=== PATIENT | male | born 1980 | race Caucasian/White ===

== ENCOUNTER 2023-03-14 11:10 | Inpatient (IN) ==
[2023-03-14] MEDS ORDERED: ASPIRIN CHEW 324 MG PO STA (11:25)
--- NOTE | 2023-03-14 11:27 | Emergency Department Note ---
Impression & Plan Chest pain, Hypertension ED Provider Note NAME: CLARKE DELONG AGE: 43 SEX: M : 1980 ARRIVES VIA: Walk-In INFORMANT: Patient, ED PROVIDER(S): Christophe Blas DO CHIEF COMPLAINT: Chest pain HPI: The patient is a 43-year-old male who presented to the emergency department for an evaluation of chest pain. I did receive a call about this patient prior to him coming to the emergency department. The patient has had ongoing chest pain symptoms over the course of the last few weeks. He was felt to be a candidate for stress testing. He presented for his outpatient stress test today but unfortunately his blood pressure was not well controlled and the patient was felt to be a better candidate for catheterization especially given his family history. He has a strong family history of early coronary artery disease. The patient states he has no leg swelling. He denies having any difficulty breathing. He does complain of some of the similar chest pain that has been having over the last few weeks. The patient denies having any recent trauma. The patient did take his morning medications. ROS: See above HPI for pertinent positives & negatives. A total of 10 systems reviewed and were otherwise negative. PAST MEDICAL HISTORY: See Below PAST SURGICAL HISTORY: See Below FAMILY HISTORY: See Below SOCIAL HISTORY: See Below HOME MEDICATIONS: See Below ALLERGIES: See Below VITALS: See Below PHYSICAL EXAMINATION: GENERAL: Patient is awake alert in no acute distress patient is resting comfortably and showing no signs of anxiety EYES: The conjunctivae are clear. The pupils are round and reactive. EARS, NOSE, MOUTH AND THROAT: The nose is without any evidence of any deformity. NECK: The neck is nontender and supple. RESPIRATORY: Normal respiratory effort is noted there is no evidence of wheezing rhonchi or rales CARDIOVASCULAR: Regular rate and rhythm noted there no murmurs rubs or gallops normal S1 normal S2. GASTROINTESTINAL: The abdomen is soft. Abdomen is nontender. MUSCULOSKELETAL/EXTREMITIES: There is no evidence of gross deformity full range of motion is noted in the hips and shoulders. SKIN: There is no obvious evidence of any rash. There are no petechiae, pallor or cyanosis noted. NEUROLOGIC: Patient is awake alert and oriented x3 MEDICAL DECISION MAKING: The patient is a 43-year-old male who presented to the emergency department for an evaluation of chest pain. The patient's had problems with chest pain over the course of the last few weeks. He had an outpatient work-up and then was scheduled for a stress test. The patient was having a stress test today. When he presented for the stress test the patient was noted to have very elevated blood pressure. It was out of the parameters that would allow him to have a stress test. The patient does have a strong family history for early coronary artery disease. For this reason he was felt to be a better candidate for inpatient management as well as possible cardiac catheterization. The patient's EKG shows no acute ischemic changes from previous and cardiac biomarker was negative. I discussed the patient's condition with the on-call [facility] wheel aligner as well as the on-call [facility] hospitalist. Triage Nursing notes reviewed. Prior medical records reviewed Vital Signs: reviewed and remarkable for elevated blood pressure. Differential diagnosis: Cardiac ischemia, aortic dissection, pulmonary embolism, pneumothorax, pneumonia, pericarditis, myocarditis, esophageal rupture, GERD, cholecystitis, pancreatitis, musculoskeletal, as well as other pathologies. ER treatment provided: See below Diagnostics interpreted by me: ECG: EKG was obtained in the emergency department. My interpretation is normal sinus rhythm at 84 bpm. There is no ectopy. There is no acute ST segment abnormalities noted. This was compared to a tracing from January 18, 2016. No significant changes were noted. Cardiac Monitoring: An order was placed for continuous cardiac monitoring. The monitor shows a rate of 82 bpm with sinus rhythm. Laboratory studies: As stated above and show below. Imaging studies: See below. Radiographic imaging was reviewed by myself Consultation(s): I discussed this case with Dr. Cage who is on-call for [facility] cardiology. I discussed this case with Angeles who is on-call for the [facility] hospitalist group. Past Med/Surg History Medical History GERD (gastroesophageal reflux disease) Hypertension Social History Smoking Status: Current every day smoker Preferred Language: Slovak Feels Safe at Home: Yes Allergies Allergies Allergy/AdvReac Type Severity Reaction Status Date / Time No Known Allergies Allergy Unverified 03/14/23 13:06 Home Meds Home Medications Medication Instructions Recorded Confirmed lisinopril 5 mg tablet 5 mg PO DAILY 08/04/22 03/14/23 pantoprazole 40 mg tablet,delayed 40 mg PO DAILY 03/14/23 03/14/23 release Results & Data (ED) Vital Signs Vital Signs - 24 hr 03/14/23 11:13 03/14/23 11:45 03/14/23 11:46 Temperature 36.5 C Temperature Source Temporal Artery Scan Pulse Rate 81 80 Pulse Rate [Left Apical] 78 Pulse Rhythm [Left Apical] Regular Pulse Strength [Left Apical] Normal Respiratory Rate 18 16 Respiratory Effort / Characteristics Non-Labored Spontaneous Non-Labored Spontaneous Respiratory Depth Normal Normal Blood Pressure 161/115 H Blood Pressure [Right Arm] 174/122 H Blood Pressure Mean 130 Blood Pressure Mean [Right Arm] 139 Pulse Oximetry 98 95 Oxygen Delivery Method Room Air Room Air Sepsis Recent Fever Within 48 Hours No Sepsis New/Unexplained Change in Mental Status N/A Sepsis Action Taken by Nursing No Action Required 03/14/23 12:48 03/14/23 13:05 Temperature Temperature Source Pulse Rate Pulse Rate [Left Apical] 78 82 Pulse Rhythm [Left Apical] Regular Regular Pulse Strength [Left Apical] Normal Normal Respiratory Rate 16 16 Respiratory Effort / Characteristics Non-Labored Spontaneous Non-Labored Spontaneous Respiratory Depth Normal Normal Blood Pressure Blood Pressure [Right Arm] 145/107 H 156/110 H Blood Pressure Mean Blood Pressure Mean [Right Arm] 119 125 Pulse Oximetry 95 98 Oxygen Delivery Method Room Air Room Air Sepsis Recent Fever Within 48 Hours Sepsis New/Unexplained Change in Mental Status Sepsis Action Taken by [facility]sp Medications Current Medication List: was personally reviewed by me Laboratory Data Attestation: I reviewed the patient's lab results. 03/14/23 11:30 03/14/23 11:30 Lab Results 03/14/23 03/14/23 03/14/23 Range/Units 11:30 11:30 11:30 WBC 8.72 (4.8-10.8) K/ul RBC 5.58 (4.70-6.10) M/uL Hgb 16.4 (14.0-18.0) g/dl Hct 48.2 (42.0-52.0) % MCV 86.4 (80.0-100.0) fL MCH 29.4 (25.0-34.0) pg MCHC 34.0 (32.0-36.0) g/dL RDW Std Deviation 38.2 (36.4-46.3) fL RDW Coeff of Derek 12.0 (11.5-14.5) % Plt Count 248 (130-400) K/uL MPV 10.4 (9.4-12.4) fL Immature Gran % (Auto) 0.2 % Neut % (Auto) 56.5 % Lymph % (Auto) 31.7 % Pendleton % (Auto) 6.8 % Eos % (Auto) 4.0 % Baso % (Auto) 0.8 % Neut # (Auto) 4.93 (1.40-6.50) K/uL Lymph # (Auto) 2.76 (1.2-3.4) K/uL Pendleton # (Auto) 0.59 (0.11-0.59) K/uL Eos # (Auto) 0.35 (0-0.50) K/uL Baso # (Auto) 0.07 (0-0.2) K/uL Immature Gran # (Auto) 0.02 (0.01-0.20) K/uL PT 10.5 (9.0-12.0) Seconds INR 1.0 (0.9-1.1) APTT 26.6 (21.0-31.0) Seconds PTT Ratio 0.9 Sodium 140 (136-145) mmol/L Potassium 3.6 (3.5-5.1) mmol/L Chloride 105 (98-107) mmol/L Carbon Dioxide 26 (21-32) mmol/L Anion Gap 9 (3-11) BUN 13 (6-23) mg/dl Creatinine 1.20 (0.6-1.4) mg/dl Est Cr Clr Drug Dosing 101.9 ml/min Est GFR ( Amer) 84.1 ml/min Est GFR (Non-Af Amer) 72.6 ml/min BUN/Creatinine Ratio 10.8 (10-20) Glucose 104 H (70-99(Fasting)) mg/dl Calcium 9.3 (8.6-10.3) mg/dl Total Bilirubin 1.8 H (0.2-1.0) mg/dl AST 30 (13-39) U/L ALT 62 H (7-52) U/L Alkaline Phosphatase 73 (34-104) U/L Troponin I High Sens 4.3 (0-20) pg/ml Total Protein 7.2 (6.0-8.3) gm/dl Albumin 4.8 (3.4-5.0) gm/dl Globulin 2.4 L (2.5-4.0) gm/dl Albumin/Globulin Ratio 2.0 (0.9-2) Administered Medications Nitroglycerin (Nitroglycerin 2% Ointment 30gm Tube) 1 inch EXT Q6H JULIANE Stop: 04/13/23 12:29 Last Admin: 03/14/23 13:06 Dose: 1 inch Documented By: VIANNEY Discontinued Medications Aspirin (Aspirin Chew 324 Mg) 324 mg PO NOW STA Stop: 03/14/23 11:26 Last Admin: 03/14/23 11:43 Dose: 243 mg Documented By: VIANNEY Imaging Data Attestation: I personally reviewed and interpreted this imaging study as follows: My Impression: 1 view chest x-ray was obtained in the emergency department. My interpretation is no free air or definite infiltrate, final report below. Radiologist's Impression: Chest X-Ray 03/14/23 11:18 XR chest 1V not portable HISTORY: Chest pain, nonspecific COMPARISON: Chest 01/18/2016. FINDINGS: The lungs are clear. Cardiac silhouette is normal in size. No pleural effusions. No pneumothorax. IMPRESSION: No acute process. ACT 112: Negative or not required by law. Electronically signed by: Raghav Sanchez M.D. 03/14/2023 11:46 AM Discharge Plan Visit Data Chief Complaint: Cardiac Assessment Stated Complaint: heart cath, ref by doc ED Provider: Christophe Blas Discharge Problem: Chest pain, Hypertension Patient Disposition: Being Evaluated by Hospitalist Forms Stand Alone Forms: My [facility] Prescriptions Prescriptions: No Action lisinopril 5 mg tablet 5 mg PO DAILY pantoprazole 40 mg tablet,delayed release (DR/EC) 40 mg PO DAILY Referrals Referrals: Raman Baig MD [Primary Care Provider] -
--- NOTE | 2023-03-14 11:48 | XRay Report ---
XR chest 1V not portable HISTORY: Chest pain, nonspecific COMPARISON: Chest 01/18/2016. FINDINGS: The lungs are clear. Cardiac silhouette is normal in size. No pleural effusions. No pneumot horax. IMPRESSION: No acute process. ACT 112: Negative or not required by law. Electronically signed by: Raghav Sanchez M.D. 03/14/2023 11:46 AM
[2023-03-14 12:04] LABS: Basophils # (auto) 0.07 K/uL (0-0.2); Basophils % (auto) 0.8 %; Eosinophils # (auto) 0.35 K/uL (0-0.50); Hematocrit (blood only) 48.2 % (42.0-52.0); Hemoglobin 16.4 g/dl (14.0-18.0); Immature Granulocytes # (auto) 0.02 K/uL (0.01-0.20); Immature Granulocytes % (auto) 0.2 %; Lymphocytes # (auto) 2.76 K/uL (1.2-3.4); Lymphocytes % (auto) 31.7 %; Mean Corpuscular Hemoglobin 29.4 pg (25.0-34.0); Mean Corpuscular Volume 86.4 fL (80.0-100.0); Mean Platelet Volume 10.4 fL (9.4-12.4); Monocytes # (auto) 0.59 K/uL (0.11-0.59); Monocytes % (auto) 6.8 %; Neutrophils # (auto) 4.93 K/uL (1.40-6.50); Neutrophils % (auto) 56.5 %; Platelet Count 248 K/uL (130-400); RDW Standard Deviation 38.2 fL (36.4-46.3); Red Blood Count 5.58 M/uL (4.70-6.10); White Blood Count 8.72 K/ul (4.8-10.8)
[2023-03-14 12:18] LABS: Albumin Level 4.8 gm/dl (3.4-5.0); BUN Creatinine Ratio 10.8 (10-20); Bilirubin,Total 1.8 mg/dl (0.2-1.0); Calcium 9.3 mg/dl (8.6-10.3); Creatinine Clr Calc Pharmacy 101.9 ml/min; Est GFR (African American) 84.1 ml/min; Est GFR (Non-African American) 72.6 ml/min; Globulin 2.4 gm/dl (2.5-4.0); Potassium 3.6 mmol/L (3.5-5.1); Total Protein 7.2 gm/dl (6.0-8.3)
[2023-03-14 12:24] LABS: Troponin I High Sensitivity 4.3 pg/ml (0-20)
[2023-03-14 12:30] LABS: Partial Thromboplastin Ratio 0.9; Partial Thromboplastin Time 26.6 Seconds (21.0-31.0); Prothrombin Time 10.5 Seconds (9.0-12.0)
[2023-03-14] MEDS: NITROGLYCERIN 2% OINTMENT 30GM TUBE EXT SCH ×2 (13:06→17:28)
--- NOTE | 2023-03-14 13:08 | Cardiology Consultation ---
Date of Consultation March 14, 2023 Assessment & Plan (1) Unstable angina pectoris: (2) Hypertension: (3) Family history of premature CAD: Plan BP remains elevated upon arrival to the emergency department. HS troponin negative x 3. Proceed with Nitropaste. Case to be discussed with the inpatient cardiology team . History of Present Illness History of Present Illness Ortiz Hanson is a 43 year old year old male who is assessed today for chief complaint of acute chest discomfort. The patient is accompanied by his spouse, Skylar. Patient notes that he is had on an off again chest discomfort for a period of several months. At times the discomfort is a vague fluttering and another times he feels a pinching and pressure sensation. 2-3 weeks ago he was driving with his father in [place] and had a significant episode of chest pressure with generalized illness. He thought he was going to have to stop the car and remote area and call 911, but subsequently his symptoms improved. He had been seen by NATASHA Schwartz of our practice 10 days ago on 03/04/2023 for the symptoms and a stress echocardiogram was tentatively planned for today. Upon arrival to the outpatient cardiology testing suite at [facility] today, he was however found to have significant hypertension with blood pressure of 145/107 and 167/117 upon repeat despite having taken his lisinopril 5 milligrams daily dose this morning. He notes that he has been following his blood pressure at home recently and it seems like his blood pressure has been above goal. A resting echocardiogram was performed which has already been reviewed independently by the undersigned with normal resting wall motion and normal LVEF. No pericardial effusion. He would already been connected to the stress test EKG machine, an EKG revealed sinus rhythm in the 70s with no ST segment changes. The stress test portion of the test was canceled in favor of this clinical assessment. At the time my assessment he described waxing waning vague 1-2/10 chest discomfort that he has been having this morning, similar to his previous symptoms. The patient has a strong family history of coronary heart disease. His brother who is also in his 40s and has a history of Hodgkin's lymphoma and prior radiation. He would recently been seen by the undersigned in hospital consultation having presented with a year of waxing waning anginal symptoms and a NSTEMI. 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 The patient notes history of coronary disease, stents in his father and multiple uncles. Past Medical History: Gastroesophageal reflux disease Hypertension Fatty liver Past Surgical History: Laparoscopic cholecystectomy, 01/12/2018 Family History: Brother, with history of Hodgkin's lymphoma, recent non ST segment myocardial infarction, diagnosis of multivessel disease and underwent coronary artery bypass graft surgery January, Patient's father is alive, had coronary stent in his 60s, 2 or 3 years ago The patient has paternal uncles 1 in his 50s and 1 his 60s that each has undergone coronary stents His paternal aunt during heart catheterization procedure at [facility] Social History: 2 children ages 22 and 19 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 Allergies Allergy/AdvReac Type Severity Reaction Status Date / Time No Known Allergies Allergy Unverified 03/14/23 13:06 Home Medications Medication Instructions Recorded Confirmed Type lisinopril 5 mg tablet 5 mg PO DAILY 08/04/22 03/14/23 History pantoprazole 40 mg tablet,delayed 40 mg PO DAILY 03/14/23 03/14/23 History release Patient History Medical History GERD (gastroesophageal reflux disease) Hypertension Surgical History Hx laparoscopic cholecystectomy Hx of tonsillectomy Hx of vasectomy Family History Other Coronary heart disease Social History Smoking Status: Never smoker Hx Alcohol Use: No Hx Substance Use: No Preferred Language: Swedish Feels Safe at Home: Yes Review of Systems Review of Systems: All systems reviewed & are unremarkable except as noted in HPI & below Physical Exam Physical Exam: Temp Pulse Resp BP Pulse Ox O2 Del Method 36.5 C 82 16 156/110 H 98 Room Air 03/14/23 11:13 03/14/23 13:05 03/14/23 13:05 03/14/23 13:05 03/14/23 13:05 03/14/23 13:05 General: no acute distress and stated age Eyes: conjunctiva are pink and non-injected, sclera clear Neck: normal jugular venous pulse, no hepatojugular reflux Chest: normal shape and normal respiratory effort Lungs: clear to auscultation and percussion Cardiac Exam: - regular heart sounds, no murmurs, rubs, or gallops Abdomen: abdomen soft, non-tender, no abnormal masses and no hepatosplenomegaly Musculoskeletal: no gait disturbance, no weakness Extremities: no edema and no cyanosis Neuro: grossly normal exam Psych: appropriate affect and insight. Results & Data Vital Signs (Past 12 Hours) Vital Signs Temp Pulse Pulse Resp BP BP Pulse Ox 03/14/23 12:48 78 16 145/107 H 95 03/14/23 11:46 80 03/14/23 11:45 78 16 174/122 H 95 03/14/23 11:13 36.5 C 81 18 161/115 H 98 O2 Del Method 03/14/23 12:48 Room Air 03/14/23 11:46 03/14/23 11:45 Room Air 03/14/23 11:13 Room Air Laboratory Results Cardiac Enzymes 03/14/23 Range/Units 11:30 AST 30 (13-39) U/L Troponin I High Sens 4.3 (0-20) pg/ml Coagulation 03/14/23 Range/Units 11:30 PT 10.5 (9.0-12.0) Seconds APTT 26.6 (21.0-31.0) Seconds CBC 03/14/23 Range/Units 11:30 WBC 8.72 (4.8-10.8) K/ul RBC 5.58 (4.70-6.10) M/uL Hgb 16.4 (14.0-18.0) g/dl Hct 48.2 (42.0-52.0) % Plt Count 248 (130-400) K/uL Neut # (Auto) 4.93 (1.40-6.50) K/uL Lymph # (Auto) 2.76 (1.2-3.4) K/uL Edwards # (Auto) 0.59 (0.11-0.59) K/uL Eos # (Auto) 0.35 (0-0.50) K/uL Baso # (Auto) 0.07 (0-0.2) K/uL Comprehensive Metabolic Panel 03/14/23 Range/Units 11:30 Sodium 140 (136-145) mmol/L Potassium 3.6 (3.5-5.1) mmol/L Chloride 105 (98-107) mmol/L Carbon Dioxide 26 (21-32) mmol/L BUN 13 (6-23) mg/dl Creatinine 1.20 (0.6-1.4) mg/dl Glucose 104 H (70-99(Fasting)) mg/dl Calcium 9.3 (8.6-10.3) mg/dl AST 30 (13-39) U/L ALT 62 H (7-52) U/L Alkaline Phosphatase 73 (34-104) U/L Total Protein 7.2 (6.0-8.3) gm/dl Albumin 4.8 (3.4-5.0) gm/dl Diagnostic Findings resting EKG performed at stress test lab today 04/14/2023 at 9:24 a.m.: Sinus rhythm 70 beats per minute no significant repolarization abnormalities.
--- NOTE | 2023-03-14 13:24 | History & Physical Report ---
Date of Service March 14, 2023 Assessment & Plan (1) Unstable angina pectoris: (2) Family history of premature CAD: (3) Hypertension: (4) Chest pain: Plan This is a 43-year-old male who has a significant past medical history of HTN, GERD, fatty liver disease and vitamin D deficiency who presents to ED at the referral of cardiology. Unstable Angina Uncontrolled HTN FH of CAD w/ brother undergoing CABG December 2022 Chest pain admit to PCU Consult Cardiology Dr. Cage, did discuss briefly with Dr. Soria reviewed Dr. Soria's OP note in EPIC from today regarding elevated BP and unable to complete stress test He was referred to ED to undergo cardiac catheterization will keep NPO until timing of cath determined continue nitropaste, lisinopril give potassium chloride 40meq x 1 to keep K > 4 will await further cardiology recs Elevated LFT per EPIC pt with fatty liver disease obtain direct bili, monitor lft Obesity bmi 30.7 encourage diet, lifestyle modifications DIET: NPO DVT ppx: SCDS for now until timing of cath determined FULL CODE PCP: Safia DISPO: PCU Pt was seen and examined in collaboration with Dr. Doe, please see addendum A total of 60 was spent coordinating, documenting, and providing care for this patient excluding time spent in the performance of separately billed services. This included personally viewing all current laboratories and imaging studies, m edication reconciliation, outpatient chart review, and discussion with specialists. History of Present Illness Chief Complaint: Chest pain x several months Primary Care Provider: Raman Baig MD This is a 43-year-old male who has a significant past medical history of HTN, GERD, fatty liver disease and vitamin D deficiency who presents to ED at the referral of cardiology. He was seen in cardiology clinic today to undergo elective stress test however patient's blood pressure was significantly elevated with readings of 145/107 and 167/117 upon repeat despite taking his lisinopril 5 mg daily dose this morning. EKG performed in office revealed normal sinus rhythm without any ST or T wave changes patient did report chest pain this morning that was waxing and waning approximately a 1-2 out of 10. Patient has been having ongoing chest discomfort over period of several months. Approximately 2 to 3 weeks ago he was driving with his father in [place] and had a significant episode of chest pressure and generalized illness. Episode resolved on its own but initially patient thought he was can have to seek medical care. Resting echocardiogram was performed today which revealed normal resting wall motion and normal LVEF with no pericardial effusion. He does have strong family history of coronary artery disease. He has a brother in his 40s who presented with a year of waxing and waning anginal symptoms. He underwent cardiac catheterization which revealed multivessel coronary artery disease and subsequently required transfer to tertiary center for intra-aortic balloon pump and underwent multivessel CABG the next day in December of 2022. Also CAD and father who required stents as well as multiple uncles. In ED patient's blood pressure was significantly elevated at 156/110. He received full dose aspirin as well as was ordered Nitropaste. Initial CBC and CMP was generally unremarkable except mildly elevated total bilirubin at 1.8 and glucose 104. Chest x-ray was negative for any acute abnormality. Patient had nitro placed patient approximately 15 minutes ago. He currently denies any chest pain. He states when chest pain occurs it is located along his left chest wall and laterally but otherwise does not radiate. He describes it as a squeezing sensation. Symptoms usually resolve with rest. He states last evening he was chasing a cow on his brother's farm when he noticed sharp pain in his left chest that resolved on its own. Again this has been intermittent over the last several months. 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 He does occasionally get nauseous with episodes but denies any diaphoresis, lightheadedness, dizziness or shortness of breath. He states over the last 2 to 3 weeks he noted his blood pressure to be running high with diastolic values in the 90s to 100s range. He just recently started checking in the past 2 to 3 weeks. He denies any recent illness, fever, chills, sweats, lightheadedness, dizziness, nausea, vomit, abdominal pain, changes bowel or urinary habits. He denies any orthopnea, PND or lower extremity edema. He denies any change in weight. 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 Due to patient's brothers recent medical illness he has been helping out on his farm which has resulted in him being much more active as well Allergies Allergy/AdvReac Type Severity Reaction Status Date / Time No Known Allergies Allergy Unverified 03/14/23 13:06 Home Medications Medication Instructions Recorded Confirmed Type lisinopril 5 mg tablet 5 mg PO DAILY 08/04/22 03/14/23 History pantoprazole 40 mg tablet,delayed 40 mg PO DAILY 03/14/23 03/14/23 History release Past Med/Surg History Medical History GERD (gastroesophageal reflux disease) Hypertension Surgical History Hx laparoscopic cholecystectomy Hx of tonsillectomy Hx of vasectomy Family History (Updated 03/14/23 @ 13:42 by Angeles Jackson PA-C) Other Coronary heart disease Diabetes Hypertension Social History (Updated 03/14/23 @ 13:42 by Angeles Jackson PA-C) Smoking Status: Never smoker Hx Alcohol Use: No Hx Substance Use: No Preferred Language: Lebanese marital status: Current Living Situation: Spouse current occupational status: employed current occupation: [employer] Feels Safe at Home: Yes Review of Systems Review of Systems: All systems reviewed & are unremarkable except as noted in HPI & below Physical Exam Physical Exam: Constitutional: WD/WN, vitals as above, NAD, sitting up in bed, pleasant, conversing easily Head: Normocephalic, Atraumatic Eyes: PERRL, conjunctivae normal, anicteric sclerae ENMT: external ear and nose normal, oropharynx normal Neck: trachea midline, no thyromegaly normal visual inspection Respiratory: normal respiratory effort, lungs clear to auscultation, no wheeze, rales, rhonchi. Normal insp/exp effort, no accessory muscle use Cardiovascular: RRR, no murmur, no edema Vessels: no JVD or carotid bruit Chest: normal inspection of chest Abdomen: normal bowel sounds, soft, nontender, no hepatosplenomegaly Musculoskeletal: no cyanosis or clubbing, extremities motor strength 5/5 Skin: no rashes, warm and dry normal turgor Neurologic: PERRL, EOMI, accommodation nl, no face palsy, no dysarthria CN's II-XI intact bilaterally and moves all extremities Psychiatric: A+Ox3, euthymic affect Lymphatic: no cervical or axillary lymphadenopathy : deferred Results & Data Results & Data Vital Signs (Past 12 Hours) Vital Signs Temp Pulse Pulse Resp BP BP Pulse Ox 03/14/23 13:05 82 16 156/110 H 98 03/14/23 12:48 78 16 145/107 H 95 03/14/23 11:46 80 03/14/23 11:45 78 16 174/122 H 95 03/14/23 11:13 36.5 C 81 18 161/115 H 98 O2 Del Method 03/14/23 13:05 Room Air 03/14/23 12:48 Room Air 03/14/23 11:46 03/14/23 11:45 Room Air 03/14/23 11:13 Room Air Laboratory Results Outpatient labs reviewed from 03/04/2023 Total cholesterol panel revealed triglycerides 60, total cholesterol 163, HDL 38, LDL 113 Diagnostic Findings Chest X-Ray 03/14/23 11:18 XR chest 1V not portable HISTORY: Chest pain, nonspecific COMPARISON: Chest 01/18/2016. FINDINGS: The lungs are clear. Cardiac silhouette is normal in size. No pleural effusions. No pneumothorax. IMPRESSION: No acute process. ACT 112: Negative or not required by law. Electronically signed by: Raghav Sanchez M.D. 03/14/2023 11:46 AM Medications Administered Medication List Nitroglycerin (Nitroglycerin 2% Ointment 30gm Tube) 1 inch EXT Q6H [facility] Stop: 04/13/23 12:29 Last Admin: 03/14/23 13:06 Dose: 1 inch Documented By: TW Discontinued Medications Aspirin (Aspirin Chew 324 Mg) 324 mg PO NOW STA Stop: 03/14/23 11:26 Last Admin: 03/14/23 11:43 Dose: 243 mg Documented By: TW ECG Rate (beats per minute): 84 Additional Comments: 84 bpm, no ST t wave changes, no changes from january 18 2016 per my interpretation. COVID-19 Results Results COVID-19 Adm Lab Results: RBC 5.58 M/uL (4.70-6.10) 03/14/23 WBC 8.72 K/ul (4.8-10.8) 03/14/23 Hgb 16.4 g/dl (14.0-18.0) 03/14/23 Hct 48.2 % (42.0-52.0) 03/14/23 Plt Count 248 K/uL (130-400) 03/14/23 Neutrophils (%) (Auto) 56.5 % 03/14/23 Lymphocytes (%) (Auto) 31.7 % 03/14/23 Monocytes # (Auto) 0.59 K/uL (0.11-0.59) 03/14/23 Eosinophils # (Auto) 0.35 K/uL (0-0.50) 03/14/23 Immature Granulocyte % (Auto) 0.2 % 03/14/23 Neutrophils # (Auto) 4.93 K/uL (1.40-6.50) 03/14/23 Lymphocytes # (Auto) 2.76 K/uL (1.2-3.4) 03/14/23 Monocytes # (Auto) 0.59 K/uL (0.11-0.59) 03/14/23 Eosinophils # (Auto) 0.35 K/uL (0-0.50) 03/14/23 Basophils # (Auto) 0.07 K/uL (0-0.2) 03/14/23 Immature Granulocyte # (Auto) 0.02 K/uL (0.01-0.20) 3 Na 140 mmol/L (136-145) 03/14/23 K 3.6 mmol/L (3.5-5.1) 03/14/23 Cl 105 mmol/L (98-107) 03/14/23 CO2 26 mmol/L (21-32) 03/14/23 Anion Gap 9 (3-11) 03/14/23 BUN 13 mg/dl (6-23) 03/14/23 Creatinine 1.20 mg/dl (0.6-1.4) 03/14/23 BUN/Creatinine Ratio 10.8 (10-20) 03/14/23 Glucose Level 104 mg/dl (70-99(Fasting)) H 03/14/23 Ca 9.3 mg/dl (8.6-10.3) 03/14/23 Total Bilirubin 1.8 mg/dl (0.2-1.0) H 03/14/23 Direct Bilirubin Pending 03/14/23 AST/SGOT 30 U/L (13-39) 03/14/23 ALT/SGPT 62 U/L (7-52) H 03/14/23 Alkaline Phosphatase 73 U/L (34-104) 03/14/23 Total Protein 7.2 gm/dl (6.0-8.3) 03/14/23 Albumin 4.8 gm/dl (3.4-5.0) 03/14/23 Globulin 2.4 gm/dl (2.5-4.0) L 03/14/23 Albumin/Globulin Ratio 2.0 (0.9-2) 03/14/23 PTT 26.6 Seconds (21.0-31.0) 03/14/23 INR 1.0 (0.9-1.1) 03/14/23 Chest X-Ray 03/14/23 Code Status & VTE Plan Code Status FULL CODE VTE Prophylaxis Plan VTE Prophylaxis will be ordered: Yes Supervising Physician Co-Signing Physician Notes 43 year old with unstable angina pectoris with significant family history of heart disease for cardiac cath . I spoke to patient briefly prior to cath. answered all questions and explained plan of care Patient is agreeable to plan of care will be transferred to PCU post cath. Further mx as per cardiology. (3) Hypertension Hypertension type: unspecified Qualified Code(s): I10 - Essential (primary) hypertension (4) Chest pain Chest pain type: unspecified Qualified Code(s): R07.9 - Chest pain, unspecified
[2023-03-14] MEDS ORDERED: HEPARIN (PORCINE) 1000 UNIT/ML 10 ML (CATH LAB USE ONLY) ONE (14:45)
[2023-03-14] MEDS ORDERED: MIDAZOLAM HCL 1 MG/ML 2ML VIAL ONE (14:45)
[2023-03-14] MEDS ORDERED: fentaNYL citrate PF 100 MCG/2 ML VIAL ONE (14:46)
[2023-03-14] MEDS ORDERED: niCARdipine HCL INJ 2.5 MG/ML 10 ML AMP ONE (14:46)
[2023-03-14] MEDS ORDERED: NITROGLYCERIN/D5W 100MCG/ML 20ML SYR ONE (14:47)
--- NOTE | 2023-03-14 15:05 | Pre Anesthesia Assessment ---
Date of Service March 14, 2023 Pre Sedation Assessment Vital Signs Temp Pulse Pulse Resp BP BP Pulse Ox 03/14/23 13:31 78 16 158/96 H 97 03/14/23 13:05 82 16 156/110 H 98 03/14/23 12:48 78 16 145/107 H 95 03/14/23 11:46 80 03/14/23 11:45 78 16 174/122 H 95 03/14/23 11:13 97.7 F 81 18 161/115 H 98 O2 Del Method 03/14/23 13:31 Room Air 03/14/23 13:05 Room Air 03/14/23 12:48 Room Air 03/14/23 11:46 03/14/23 11:45 Room Air 03/14/23 11:13 Room Air Cardiovascular RRR, no murmur, no edema Respiratory normal respiratory effort, lungs clear to auscultation Pre-Sedation Airway Assessment Smoking Status: Never smoker Hx Sleep Apnea: No Hx Difficult Intubation: No Short, Thick Neck: No Thyromental Distance: > or= 3.5 Finger Breadths Oral Cavity: + WNL Mallampati Class: III ASA: ASA3 Procedure Planning Contraindications for Sedation: none Current Medications Reviewed: Yes Notes The planned sedation has been discussed with the patient. Informed Consent was obtained. I have identified the patient, determined the appropriateness of sedation and have assessed the patient immediately prior to the procedure. All medicine(s) and interventions are by my order.
--- NOTE | 2023-03-14 15:07 | Cardiology Progress Note ---
Date of Service March 14, 2023 Assessment & Plan Admission and Anticipated Discharge Date Admission Date: See below Supervising Physician Co-Signing Physician Notes Attending Staff: Pt seen and evaluated with [facility] Staff. Concur with their observations and plans 43 yo man presenting with chest discomfort Chest discomfort x several weeks Location: Left chest; flet deep, not superficially Radiation - none Duration - minutes + Associated with dyspnea Occasional palpitations No pre of toby syncope No LE edema No PND No orthopnea Describes a recent episode of substernal chest squeezing, severe. + Brother - also in 40's - with hx of Hodgkins Recently Dx with multivessel CAD Underwent CABG Strong family hx with multiple relatives requiring Coronary revascularization at less than 65 years of age NonSmoker No DMII Pt presented for Stress ECHO earlier today Noted to be hypertensive with diastolic BP >100 mmHg Stress ECHO was aborted Resting transthoracic echo completed - Preliminary ECHO results - normal LVEF; no major valvular heart disease Plans: * Plan for coronary angiography on 03/14/2023 * Explained procedure, risks and benefits * Pt is NPO * No heparin at present * Continue Lisinopril 5 mg po per day * Goal SBP 120 mmHg * Patient appears euvolemic * K+ goal 4.5-5 * Mag goal > 2 * Start ASA 81 mg po per day * Check Fasting Lipid Panel * Check HBA1C * LP(a) checked as an outpt Keegan Cage Subjective Events overnight: * Presented to outpt Cardiology office * Noted to be markedly hypertensive (new finding) * Referred to [facility] ED for possible coronary angiography Subjective: * Mild substernal chest discomfort Review of Systems Review of Systems: All systems reviewed & are unremarkable except as noted in HPI & below Physical Exam Physical Exam: Overweight Glasses No Elevation in JVP S1S2 Soft 2/6 systolic murmur CTA B No C/C/E Warm and Well-perfused 2/2 radial pulse on Right Results & Data Vital Signs (Past 12 Hours) Vital Signs Temp Pulse Pulse Resp BP BP Pulse Ox 03/14/23 13:31 78 16 158/96 H 97 03/14/23 13:05 82 16 156/110 H 98 03/14/23 12:48 78 16 145/107 H 95 03/14/23 11:46 80 03/14/23 11:45 78 16 174/122 H 95 03/14/23 11:13 36.5 C 81 18 161/115 H 98 O2 Del Method 03/14/23 13:31 Room Air 03/14/23 13:05 Room Air 03/14/23 12:48 Room Air 03/14/23 11:46 03/14/23 11:45 Room Air 03/14/23 11:13 Room Air Laboratory Results Cardiac Enzymes 03/14/23 Range/Units 11:30 AST 30 (13-39) U/L Troponin I High Sens 4.3 (0-20) pg/ml Coagulation 03/14/23 Range/Units 11:30 PT 10.5 (9.0-12.0) Seconds APTT 26.6 (21.0-31.0) Seconds CBC 03/14/23 Range/Units 11:30 WBC 8.72 (4.8-10.8) K/ul RBC 5.58 (4.70-6.10) M/uL Hgb 16.4 (14.0-18.0) g/dl Hct 48.2 (42.0-52.0) % Plt Count 248 (130-400) K/uL Neut # (Auto) 4.93 (1.40-6.50) K/uL Lymph # (Auto) 2.76 (1.2-3.4) K/uL [place] # (Auto) 0.59 (0.11-0.59) K/uL Eos # (Auto) 0.35 (0-0.50) K/uL Baso # (Auto) 0.07 (0-0.2) K/uL Comprehensive Metabolic Panel 03/14/23 Range/Units 11:30 Sodium 140 (136-145) mmol/L Potassium 3.6 (3.5-5.1) mmol/L Chloride 105 (98-107) mmol/L Carbon Dioxide 26 (21-32) mmol/L BUN 13 (6-23) mg/dl Creatinine 1.20 (0.6-1.4) mg/dl Glucose 104 H (70-99(Fasting)) mg/dl Calcium 9.3 (8.6-10.3) mg/dl AST 30 (13-39) U/L ALT 62 H (7-52) U/L Alkaline Phosphatase 73 (34-104) U/L Total Protein 7.2 (6.0-8.3) gm/dl Albumin 4.8 (3.4-5.0) gm/dl Intake and Output 03/14/23 03/14/23 03/14/23 06:59 14:59 22:59 Other: Weight 108.5 kg Weight Measurement Method Chair Scale Patient Weight 03/15/23 06:59 Weight 108.5 kg Medications Administered Current Inpatient Medications Nitroglycerin (Nitroglycerin 2% Ointment 30gm Tube) 1 inch EXT Q6H [facility] Stop: 04/13/23 12:29 Last Admin: 03/14/23 13:06 Dose: 1 inch
--- NOTE | 2023-03-14 15:37 | Post Anesthesia Assessment ---
Date of Service March 14, 2023 Post Sedation Assessment Vital Signs Temp Pulse Pulse Resp BP BP Pulse Ox 03/14/23 13:31 78 16 158/96 H 97 03/14/23 13:05 82 16 156/110 H 98 03/14/23 12:48 78 16 145/107 H 95 03/14/23 11:46 80 03/14/23 11:45 78 16 174/122 H 95 03/14/23 11:13 97.7 F 81 18 161/115 H 98 O2 Del Method 03/14/23 13:31 Room Air 03/14/23 13:05 Room Air 03/14/23 12:48 Room Air 03/14/23 11:46 03/14/23 11:45 Room Air 03/14/23 11:13 Room Air Recovery Score Activity: Moves 4 extremities Respiration: Deep Breath/Cough Circulation: +/-20% PreAnes Value Consciousness: Fully Awake Oxygen Saturation: O2 needed for >90% Discharge Sedation Level of Care: Fast Track Phase II Post Sedation Plan On clinical assessment, the patient appears to have tolerated the sedation without complications. Patient is recovering as anticipated. Patient will continue to be monitored by nursing and may be discharged when sedation discharge criteria are met per below protocol. Upon Completions of procedure up to 15 minutes continue every 5 minute vital signs and the P.A.R. score; then discharge to a Phase I or Fast Track to Phase II per the following guidelines: * Discharge Patient to appropriate Phase II area if PAR is 8 or greater or return to pre- procedure baseline. The post - procedure orders will be as directed. * If PAR score is less than 8 or not return to pre-procedure baseline then patient will follow Phase I monitoring till PAR is reached for Phase II. The Phase I may be done in procedure room or may call to secure a Phase I area. * If naloxone or flumazenil are used for reversal, hold in Phase I for continued monitoring from when last reversal dose was given for a minimum of 60 minutes or longer pending the nurse and/or physician discretion of patient condition before discharge to Phase II. Please call the Sedation Physician to re-evaluate and complete post-note for discharge to Phase II area. Do NOT discharge from procedure sedation or Phase 1 until post- sedation evaluation note is complete by procedure /sedation MD Sedation Discharge Instructions to be given to the patient at discharge to home.
--- NOTE | 2023-03-14 15:46 | Cardiac Catheterization ---
[facility] Data: Look [employer] Watcher Cardiac Status Clinical evaluation leading to the procedure CAD Presenation: Unstable angina Anginal Classification: CCS IV Diagnostic Physicians Name: West Jj MD Closure Device Recommendations: Medical Therapy and/or Counseling Cardiac Cath Procedure Full Procedure Date March 14, 2023 Pre-Procedure Diagnosis Pre-Procedure Diagnosis: Angina AUC Score AUC Score: 7 Post-Procedure Diagnosis Post-Procedure Diagnosis: Mild CAD Procedure(s) Performed Procedure(s) Performed: Coronary Angiography and Left Heart Cath Him Director West Jj MD Adjunct Trainer(s) Dennis Estimated Blood Loss Estimated Blood Loss: 5 Medication(s) Medication(s): Fentanyl, Heparin, Lidocaine 1%, Nicardipine, Nitroglycerin and Versed Summary of Findings Indication: Suspected ACS Access: 6 Fr right radial artery Catheters: [place], diagnostic JL 3.5 Findings: LM -LAD/circumflex separate ostium LAD -medium caliber, no significant disease, distal vessel extends to apex. Small D1 20-30% ostial. Medium D1 without disease. Circumflex -large caliber, no significant disease RCA -dominant, large caliper, no significant disease LVEDP - 12 Arterial Closure: TR Band Summary: 1. Minimal nonobstructive coronary artery disease -20 to 30% ostial small D1 2. Normal intracardiac filling pressure Recommendations: Continued ASCVD risk factor modification and blood pressure control per Dr. Soria and Dr. Cage. Hemodynamics Rest Ao:: 115/81 Final Ao: 131/94 LV: 135/12 Recommendations Recommendations: Medical Therapy and/or Counseling Specimens Specimens: None Radiation Exposure (mGy) 929 Contrast (mls) 30 Anesthesia Moderate 2450-9395 Procedural Complication(s) None Disposition Look Out [employer] Watcher Holding/Recovery I attest to the content of the Intraoperative Record and any orders documented therein. Any exceptions are noted below. [facility] Card Cath Procedure Codes Cardiac Catheterization Procedure 1: Cardiovascular Cath Procedures: 60147 Coronaries and LHC (+/-LV) Moderate Sedation Procedure 1: Sedation/Anesthesia: 56903 Mod Sedation by the same physician;Init15 Min Child Age 5 & Up PG Care Time/CCT Total # of Minutes Spent Total Time Spent with Patient: Total time spent is greater than 50% in coordination of care (as documented) at patient's floor/unit and/or counseling patient:
[2023-03-14] MEDS ORDERED: SODIUM CHLORIDE 0.9% 1000ML 1,000 ML IV SCH (16:00)
[2023-03-14] MEDS ORDERED: POTASSIUM CHLORIDE CRTAB 20 MEQ TABCR PO STA (16:14)
[2023-03-14] MEDS ORDERED: ONDANSETRON INJ 2 MG/ML 2 ML VIAL IV PRN (16:14)
[2023-03-14] MEDS ORDERED: ACETAMINOPHEN 325 MG TAB PO PRN (16:14)
[2023-03-14] MEDS ORDERED: ALUMINUM/MAGNESIUM SUSP 30 ML UDC PO PRN (16:14)
[2023-03-14 16:29] LABS: Bilirubin Direct 0.3 mg/dl (0-0.2)
--- NOTE | 2023-03-14 16:46 | Discharge Summary ---
Discharge Summary Date of Service March 14, 2023 Notes For Next Care Provider Patient was referred to cardiology due to chest pain. He was scheduled for nuclear stress test; however unable to perform due to uncontrolled high blood pressure. 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 Cardiac catheterization was negative and revealed minimal nonobstructive coronary artery disease, 20 to 30% ostial small D1 with normal intracardiac filling pressure. He was hypertensive throughout hospital stay lisinopril was increased to 10 mg daily. He will need close outpatient follow-up for blood pressure management. Medication Changes From Visit Lisinopril increased to 10 mg daily Admission HPI Per Admitting Provider This is a 43-year-old male who has a significant past medical history of HTN, GERD, fatty liver disease and vitamin D deficiency who presents to ED at the referral of cardiology. He was seen in cardiology clinic today to undergo elective stress test however patient's blood pressure was significantly elevated with readings of 145/107 and 167/117 upon repeat despite taking his lisinopril 5 mg daily dose this morning. EKG performed in office revealed normal sinus rhythm without any ST or T wave changes patient did report chest pain this morning that was waxing and waning approximately a 1-2 out of 10. Patient has been having ongoing chest discomfort over period of several months. Approximately 2 to 3 weeks ago he was driving with his father in [place] a nd had a significant episode of chest pressure and generalized illness. Episode resolved on its own but initially patient thought he was can have to seek medical care. Resting echocardiogram was performed today which revealed normal resting wall motion and normal LVEF with no pericardial effusion. He does have strong family history of coronary artery disease. He has a brother in his 40s who presented with a year of waxing and waning anginal symptoms. He underwent cardiac catheterization which revealed multivessel coronary artery disease and subsequently required transfer to tertiary center for intra-aortic balloon pump and underwent multivessel CABG the next day in December of 2022. Also CAD and father who required stents as well as multiple uncles. In ED patient's blood pressure was significantly elevated at 156/110. He received full dose aspirin as well as was ordered Nitropaste. Initial CBC and CMP was generally unremarkable except mildly elevated total bilirubin at 1.8 and glucose 104. Chest x-ray was negative for any acute abnormality. Patient had nitro placed patient approximately 15 minutes ago. He currently denies any chest pain. He states when chest pain occurs it is located along his left chest wall and laterally but otherwise does not radiate. He describes it as a squeezing sensation. Symptoms usually resolve with rest. He states last evening he was chasing a cow on his brother's farm when he noticed sharp pain in his left chest that resolved on its own. Again this has been intermittent over the last several months. 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 He does occasionally get nauseous with episodes but denies any diaphoresis, lightheadedness, dizziness or shortness of breath. He states over the last 2 to 3 weeks he noted his blood pressure to be running high with diastolic values in the 90s to 100s range. He just recently started checking in the past 2 to 3 weeks. He denies any recent illness, fever, chills, sweats, lightheadedness, dizziness, nausea, vomit, abdominal pain, changes bowel or urinary habits. He denies any orthopnea, PND or lower extremity edema. He denies any change in weight. 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 Due to patient's bro thers recent medical illness he has been helping out on his farm which has resulted in him being much more active as well Admission Exam Per Admitting Provider Constitutional: WD/WN, vitals as above, NAD, sitting up in bed, pleasant, conversing easily Head: Normocephalic, Atraumatic Eyes: PERRL, conjunctivae normal, anicteric sclerae ENMT: external ear and nose normal, oropharynx normal Neck: trachea midline, no thyromegaly normal visual inspection Respiratory: normal respiratory effort, lungs clear to auscultation, no wheeze, rales, rhonchi. Normal insp/exp effort, no accessory muscle use Cardiovascular: RRR, no murmur, no edema Vessels: no JVD or carotid bruit Chest: normal inspection of chest Abdomen: normal bowel sounds, soft, nontender, no hepatosplenomegaly Musculoskeletal: no cyanosis or clubbing, extremities motor strength 5/5 Skin: no rashes, warm and dry normal turgor Neurologic: PERRL, EOMI, accommodation nl, no face palsy, no dysarthria CN's II-XI intact bilaterally and moves all extremities Psychiatric: A+Ox3, euthymic affect Lymphatic: no cervical or axillary lymphadenopathy : deferred Principal Dx & Hospital Course #1 = Principal Diagnosis (1) Unstable angina pectoris: (2) Family history of premature CAD: (3) Hypertension: (4) Chest pain: Plan This is a 43-year-old male who has a significant past medical history of HTN, GERD, fatty liver disease and vitamin D deficiency who presents to ED at the referral of cardiology. Unstable Angina Uncontrolled HTN FH of CAD w/ brother undergoing CABG December 2022 Chest pain admit to PCU Consult Cardiology Dr. Cage, did discuss briefly with Dr. Soria reviewed Dr. Soria's OP note in [facility] from today regarding elevated BP and unable to complete stress test He was referred to ED to undergo cardiac catheterization will keep NPO until timing of cath determined continue nitropaste, lisinopril give potassium chloride 40meq x 1 to keep K > 4 Pt underwent cardiac cath which was negative, only mild nonobstructive disease He will be monitored closely on floor to ensure no bleeding at TR band site and discharged home later this evening Elevated LFT per [facility] pt with fatty liver disease obtain direct bili, monitor lft Obesity bmi 30.7 encourage diet, lifestyle modifications DIET: NPO DVT ppx: SCDS for now until timing of cath determined FULL CODE PCP: Safia DISPO: PCU Pt was seen and examined in collaboration with Dr. Doe, please see addendum A total of 60 was spent coordinating, documenting, and providing care for this patient excluding time spent in the performance of separately billed services. This included personally viewing all current laboratories and imaging studies, medication reconciliation, outpatient chart review, and discussion with specialists. Discharge Exam Gen: WD/WN, NAD, A&O x3 HEENT: Normocephalic, atraumatic, conjunctivae moist, sclerae anicteric, mucous membranes moist. Lung: Clear to Auscultation bilaterally, no wheezes/rales/rhonchi Heart: Regular rate, regular rhythm, no murmurs, rubs, or gallops Abdomen: Soft, NT, ND +BS x 4 Extremities: No edema, R TR band in tact, no bleeding Skin: Warm, no rash, negative turgor. Updated Medication List Medication Instructions Recorded Confirmed Type lisinopril 10 mg tablet 10 mg PO DAILY #30 tabs 03/14/23 Rx pantoprazole 40 mg tablet,delayed 40 mg PO DAILY 03/14/23 03/14/23 History release Hospital Stay Data Consultations 03/14/23 13:10 ED Decision to Admit Stat 03/14/23 13:14 Consult Cardiology Routine Procedures Performed Operation Date: 03/14/23 14:00 Actual Procedures s Cineradiography w/Routine Exam(Right) - Orlando Jj MD p Cath, Left with Cors and Vent - Orlando Jj MD AD Presenation: Unstable angina Anginal Classification: CCS IV Diagnostic Physicians Name: West Jj MD Closure Device Recommendations: Medical Therapy and/or Counseling Cardiac Cath Procedure Full Procedure Date March 14, 2023 Pre-Procedure Diagnosis Pre-Procedure Diagnosis: Angina AUC Score AUC Score: 7 Post-Procedure Diagnosis Post-Procedure Diagnosis: Mild CAD Procedure(s) Performed Procedure(s) Performed: Coronary Angiography and Left Heart Cath Security Representative West Jj MD Senior Quality Assurance Specialist(s) Dennis Estimated Blood Loss Estimated Blood Loss: 5 Medication(s) Medication(s): Fentanyl, Heparin, Lidocaine 1%, Nicardipine, Nitroglycerin and Versed Summary of Findings Indication: Suspected ACS Access: 6 Fr right radial artery Catheters: kayley Perez JL 3.5 Findings: LM -LAD/circumflex separate ostium LAD -medium caliber, no significant disease, distal vessel extends to apex. Small D1 20-30% ostial. Medium D1 without disease. Circumflex -large caliber, no significant disease RCA -dominant, large caliper, no significant disease LVEDP - 12 Arterial Closure: TR Band Summary: 1. Minimal nonobstructive coronary artery disease -20 to 30% ostial small D1 2. Normal intracardiac filling pressure Recommendations: Continued ASCVD risk factor modification and blood pressure control per Dr. Soria and Dr. Cage. Hemodynamics Rest Ao:: 115/81 Final Ao: 131/94 LV: 135/12 Recommendations Recommendations: Medical Therapy and/or Counseling Specimens Specimens: None Radiation Exposure (mGy) 929 Contrast (mls) 30 Anesthesia Moderate [id number] Procedural Complication(s) None Disposition Mystery Shopper Holding/Recovery I attest to the content of the Intraoperative Record and any orders documented therein. Any exceptions are noted below. Diagnostic Imagining Performed 03/14/23 13:49 CL Cath Imgs for PACS use only Stat Pending Results Patient Have Any Pending Studies at Discharge: No Discharge Instructions Given to Patient (Per Discharging Provider) ACTIVITY RECOMMENDATIONS: Excess manipulation of the wrist should be avoided for the next 24-48 hours. * No lifting over 2 pounds (approximately a 1/2 gallon of milk) with the utilized arm for 24 hours. * No strenuous activity such as bowling or tennis for 3 days. * Keep the site of the procedure covered with a bandage for 24 hours. *You may shower the day after the procedure. Do not take a tub bath or submerge the puncture site in water for the next 3 days. *Do not operate any motorized equipment for 3 days. SPECIAL CARE INSTRUCTIONS: The site may be slightly bruised and sore following your procedure. Should any of the following occur, contact the Dr. who performed your procedure. 1. Redness/inflammation, swelling, chills, or fever, or colored drainage at procedure site within 3-7 days after your procedure. 2. Coldness, discoloration, ongoing numbness, severe pain, or swelling. Expect mild tingling of hand and tenderness at the puncture site for up to three days. If this persists beyond three days, or other symptoms develop, notify the Dr. who performed your procedure. BLEEDING: If the procedure site on your wrist begins to bleed, do not panic 1. Place 1 or 2 fingers firmly just slightly above the insertion site to stop the bleeding. You may be able to feel your pulse as you hold pressure. 2. Lift your finger after 5 minutes to see if the bleeding has stopped. 3. Once the bleeding has stopped, gently wipe the wrist area clean with a bandage. * If the bleeding from your wrist does not stop after 10 minutes, or if there is a large amount of bleeding or spurting, call 911 (do not drive yourself to the hospital). SKIN IRRITATION: * You may experience some redness and/or swelling in the area where radiation was administered. If any skin irritation occurs, please contact your family physician. FOLLOW UP VISIT: Keep any scheduled doctor appointments. MEDICATION CHANGES: Increase Lisinopril to 10mg daily. Continue all other medications as prescribed. SUMMARY OF TEST RESULTS: You were admitted for chest pain that was concerning for heart disease. You underwent cardiac catheterization which was negative. You are being discharged to home with close outpatient Follow up. PENDING TEST RESULTS: None RECOMMENDATIONS FOR FOLLOW-UP: Please drink plenty of fluids, specifically water, this evening. I would recommend drinking 32 oz of water if able. Please call your primary care provider in a.m. to obtain a hospital follow up. It is recommended you follow up within 1 week of discharge. You will need to follow up with cardiology as outpatient. They will call you for an appointment. If you do not hear from them in 1 week, please call. Please check blood pressure twice daily. Keep a log of this. 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 OTHER INSTRUCTIONS: Seek medical attention if you have: * temperature above 101 * chest pain or trouble breathing * abdominal pain, nausea, vomiting * diarrhea, dark stools or bloody stools * any unanswered questions or concerns Call 911 if symptoms are severe. Please take good care of yourself. It has been a pleasure taking care of you. Please take care of yourself. If you have any questions regarding your recent hospitalization please contact [facility] and request [facility]rick[facility] @ [phone]. Angeles Jackson PA-C Total Time Total Time Spent Total Time Spent (In Minutes): 45 minutes Supervising Physician Co-Signing Physician Notes stable for discharge cardiac cath negative
[2023-03-15] MEDS ORDERED: lisinopril 10 MG TAB PO SCH (09:00)
[2023-03-15] MEDS ORDERED: PANTOprazole 40 MG TAB PO SCH (09:00)
--- NOTE | 2023-03-15 15:54 | Electrocardiogram Report ---
Test Reason : Blood Pressure : / mmHG Vent. Rate : 084 BPM Atrial Rate : 084 BPM P-R Int : 142 ms QRS Dur : 078 ms QT Int : 370 ms P-R-T Axes : 053 006 035 degrees QTc Int : 437 ms Normal sinus rhythm Normal ECG When compared with ECG of 18-JAN-2016 22:32, No significant change was found Confirmed by Christophe Joseph ([id number]) on 03/15/2023 3:54:50 PM Referred By: REFERRED SELF Confirmed By:Christophe Joseph
== END 2023-03-14 18:34 | disposition home or self-care (01) | DRG 287 ==
LOC: ED 11:10 → ASU 14:48 → 2S 14:48